=== PATIENT | male | born 2000 | race African-American/Black ===

== ENCOUNTER 2022-07-28 17:59 | Emergency (ER) | payer MEDICAID ==
[2022-07-28] MEDS ORDERED: Lidocaine 1% 30 ML SDV INJECT ONE (18:27)
== END 2022-07-28 19:06 | disposition home or self-care (01) ==
LOC: VM.ED 17:59 → EDBD 17:59 → VM.ED 19:06
DX: S63.287A Dislocation of proximal interphalangeal joint of left little finger, initial encounter (principal)
CPT/HCPCS: 26770; 99283-25